=== PATIENT | male | born 1950 | race Caucasian/White ===

== ENCOUNTER 2019-09-09 10:15 | Emergency (ER) | payer MEDICARE ==
[~2019-09-09] VITALS: Ht 175.3 cm; Wt 65.8 kg
[~2019-09-09 10:15] MED LIST: CARB1TAB37 PO; CARB1TER9 PO; COM200 PO; ERGO2000 PO; TAMS0.4C96 PO
--- NOTE | 2019-09-09 10:15 | NUR ---
STANISLAW HEREDIA ALS TO ER BED 07
--- NOTE | 2019-09-09 10:15 | NUR ---
Tish brady in ED - 09/09/19 at 1016 by GABBY PT BIBA ALS TO ER BED 017
[2019-09-09 10:20] VITALS: BP 135/86
[2019-09-09] MEDS ORDERED: [UNRECOGNIZED DRUG - CODE] TP (10:31)
[2019-09-09] MEDS ORDERED: QUET25TA PO (10:31)
[2019-09-09] MEDS ORDERED: CHOL200035 PO (10:31)
[2019-09-09] MEDS ORDERED: HYD2.5O TP (10:32)
[2019-09-09] MEDS ORDERED: NACL 0.9% 1,000 ML IV ONE (10:34)
[2019-09-09] MEDS ORDERED: Duoneb IH (10:34)
--- NOTE | 2019-09-09 10:40 | NUR ---
X-Ray at bedside.
[2019-09-09 11:11] LABS: BASOPHILS # (AUTO) 0.1 K/uL (0.00-0.22); EOSINOPHILS # (AUTO) 0.1 K/uL (0-0.4); EOSINOPHILS % (AUTO) 2.4 % (0.0-4.0); HEMATOCRIT 37.3 % (36-52); HEMOGLOBIN 12.1 g/dL (12.0-18.0); LYMPHOCYTES # (AUTO) 0.7 K/uL (2.0-11.5); LYMPHOCYTES % (AUTO) 12.4 % (20.5-51.1); MEAN CORPUSCULAR HEMOGLOBIN 30 pg (27-31); MEAN CORPUSCULAR HGB CONC 32 g/dL (33-37); MEAN CORPUSCULAR VOLUME 93.9 fL (80-94); MONOCYTES # (AUTO) 0.2 K/uL (0.8-1.0); MONOCYTES % (AUTO) 4.2 % (1.7-9.3); NEUTROPHILS # (AUTO) 4.4 K/uL (1.8-7.7); PLATELET COUNT (AUTO) 234 K/uL (140-450); RED BLOOD CELL COUNT(AUTO) 3.97 MIL/uL (4.20-6.10); RED CELL DISTRIBUTION WIDTH 16.2 % (11.6-13.7); WHITE BLOOD COUNT (AUTO) 5.6 K/uL (4.8-10.8)
[2019-09-09 11:23] LABS: ANION GAP 11.5 (8-16); CARBON DIOXIDE 31.6 mmol/L (21-32); CREATININE 0.9 mg/dL (0.7-1.3); POTASSIUM 4.1 mmol/L (3.5-5.1)
[2019-09-09 11:26] LABS: PROTHROMBIN TIME 10.4 secs (10.8-13.4)
[2019-09-09 11:28] LABS: ALBUMIN 3.5 g/dL (3.4-5.0); TOTAL BILIRUBIN 1.2 mg/dL (0.0-1.0)
--- NOTE | 2019-09-09 11:30 | NUR ---
PT GOING TO CT VIA [facility] WITH [facility] EMT
--- NOTE | 2019-09-09 11:36 | NUR ---
TO CT VIA [facility]. PT WITH INTERMITTENT BOUT OF CONFUSION. BUT PT REMAINS COOPERATIVE AND PLEASANT.
[2019-09-09 13:19] VITALS: BP 118/90
--- NOTE | 2019-09-09 13:29 | NUR ---
PT RESTING IN BED, RR EVEN AND UNLABORED. VSS. DENIES ANY PAIN. PT CONFUSED AT BASELINE. ALL NEEDS MET.
--- NOTE | 2019-09-09 14:25 | NUR ---
ARRIVED FOR TRANSPORT HOME. NUMEROUS QUESTIONED ANSWERED TO . STATES SHE IS VERY UPSET PT WAS TRANSPORTED TO [facility] INSTEAD OF [facility]. ANSWERED ALL WIFES QUESTIONS IT PERTAINS TO PREHOSPITAL CARE AND TREATMENT. DEMANDING TO SPEAK TO WHOEVER SAID IT WAS OK TO HAVE HER SEEN HERE AND WHO WOULD BE PAYING THE BILL. REFERRED TO CHARGE NURSE PILAR FOR FURTHER QUESTION. PT PLACED SAFELY IN WHEEL CHAIR IS SITTING IN LOBBY AT REQUEST OF WHO INSISTS UPON SPEAKING TO AIRLINE HOSTESS.
--- NOTE | 2019-09-09 14:29 | NUR ---
Patient discharged with v/s stable. Written and verbal after care instructions given and explained. Patient verbalized understanding. Wheel Chair Assisted with by caregiver. All questions addressed prior to discharge. Advised to follow up with PMD.
--- NOTE | 2019-09-13 10:24 | NUR ---
Late entry. Confirmed with RN that 0.9 NS IV completed at 1425
== END 2019-09-09 14:29 | disposition home or self-care (01) ==
LOC: MED 10:15
DX: S00.81XA Abrasion of other part of head, initial encounter (principal); W18.30XA Fall on same level, unspecified, initial encounter; Y93.89 Activity, other specified; Y92.89 Other specified places as the place of occurrence of the external cause; Y99.8 Other external cause status; G20 Parkinson's disease; I10 Essential (primary) hypertension; G30.9 Alzheimer's disease, unspecified; Z79.899 Other long term (current) drug therapy
CPT/HCPCS: 36415; 70450; 71045; 80053; 82550; 84484; 85025; 85610; 85730; 93005; 99284; Q0092; J7030

== ENCOUNTER 2019-10-07 16:48 | Emergency (ER) | payer MEDICARE ==
[~2019-10-07] VITALS: Ht 177.8 cm; Wt 58.1 kg
[~2019-10-07 16:48] MED LIST changes: +CHOL200035 PO; +Duoneb IH; -ERGO2000 PO; +HYD2.5O TP; +QUET25TA PO; +[UNRECOGNIZED DRUG - CODE] TP
--- NOTE | 2019-10-07 16:49 | NUR ---
PT BIBA AND PLACED IN BED 7.
[2019-10-07] MEDS ORDERED: QUET25TA PO (17:02)
[2019-10-07] MEDS ORDERED: MULT-153 PO (17:02)
[2019-10-07] MEDS ORDERED: CALC-106 PO (17:02)
[2019-10-07] MEDS ORDERED: ALEN70TA1 PO (17:02)
[2019-10-07] MEDS ORDERED: COM200 PO (17:02)
--- NOTE | 2019-10-07 17:30 | NUR ---
solar installer technician at bedside.
--- NOTE | 2019-10-07 17:50 | NUR ---
GIOVANNA FROM [facility] FOR EVALUATION OF ALOC, PER STAFF PT WAS IN DINING AREA AND HAD A SYNCOPAL EPISODE AND WAS UNRESPONSIVE FOR APPROXIMATELY 2 MINUTES AND WHEN HE CAME TO PATIENT WAS ACTING ABNORMAL FROM HIS BASELINE. PT LIVES IN DEMENTIA UNIT WITH HX OF DEMENTIA. PT AWAKE ,ALERT X2 .AFEBRILE .SENSORY 5/5, MOTOR 5/5 FOR EXTREMITIES.
--- NOTE | 2019-10-07 17:50 | NUR ---
PT BRYAN TO CT SCAN.
--- NOTE | 2019-10-07 18:14 | NUR ---
PT BACK FROM [facility] IN [facility] [place] [place].
[2019-10-07 18:26] LABS: BASOPHILS % (AUTO) 0.4 % (0.0-2.0); HEMOGLOBIN 10.8 g/dL (12.0-18.0); LYMPHOCYTES # (AUTO) 0.6 K/uL (2.0-11.5); LYMPHOCYTES % (AUTO) 9.1 % (20.5-51.1); MEAN CORPUSCULAR HEMOGLOBIN 31 pg (27-31); MEAN CORPUSCULAR HGB CONC 33 g/dL (33-37); MEAN CORPUSCULAR VOLUME 95.2 fL (80-94); MONOCYTES # (AUTO) 0.6 K/uL (0.8-1.0); MONOCYTES % (AUTO) 8.4 % (1.7-9.3); NEUTROPHILS # (AUTO) 5.6 K/uL (1.8-7.7); NEUTROPHILS % (AUTO) 82.1 % (42.2-75.2); PLATELET COUNT (AUTO) 215 K/uL (140-450); RED BLOOD CELL COUNT(AUTO) 3.46 MIL/uL (4.20-6.10); RED CELL DISTRIBUTION WIDTH 15.1 % (11.6-13.7); WHITE BLOOD COUNT (AUTO) 6.8 K/uL (4.8-10.8)
[2019-10-07 18:49] LABS: ALBUMIN 3.2 g/dL (3.4-5.0); ANION GAP 11.5 (8-16); CARBON DIOXIDE 30.4 mmol/L (21-32); CREATININE 1.1 mg/dL (0.7-1.3); POTASSIUM 3.9 mmol/L (3.5-5.1); TOTAL BILIRUBIN 0.9 mg/dL (0.0-1.0)
--- NOTE | 2019-10-07 19:12 | NUR ---
GAVE REPORT TO GAETANO CANO.
[2019-10-07 19:13] LABS: APPEARANCE,URINE SL CLOUDY (CLEAR); BILIRUBIN,URINE NEGATIVE (NEGATIVE); BLOOD, URINE 1+ (NEGATIVE); COLOR,URINE YELLOW (YELLOW); LEUKOCYTE ESTERASE ,URINE NEGATIVE (NEGATIVE); NITRITE, URINE NEGATIVE (NEGATIVE); PH,URINE 5.5 (5.0-9.0); UGLUCOSE NEGATIVE (NEGATIVE)
--- NOTE | 2019-10-07 19:13 | NUR ---
BEDSIDE REPORT RECEIVED FROM GAETANO HORNER. ASSUMED CARE AT THIS TIME.
--- NOTE | 2019-10-07 19:59 | NUR ---
PT LAYING SUPINE IN BED. PT AAOX3 TO PERSON, PLACE, LOCATION. ANSWERS SOME QUESTIONS APPROPIATELY. PT GAZES OFF AND DOES NOT MAKE EYE CONTACT. FAMILY AT BEDSIDE. BEDRAILS X2 UP. WILL CONTINUE TO MONITOR.
[2019-10-07] MEDS ORDERED: LEVOFLOXACIN 500 MG/D5W PREMIX 100 ML IV ONE (20:30)
--- NOTE | 2019-10-07 20:50 | NUR ---
PT LAYING SUPINE IN BED. RR EVEN AND UNLABORED. O2 SAT AT 98% RA. FAMILY AT BEDSIDE. BEDRAILS X2 UP. WILL CONTINUE TO MONITOR.
--- NOTE | 2019-10-07 20:55 | NUR ---
DR. BEDOLLA AT BEDSIDE EVALUTING PT.
[2019-10-07] MEDS ORDERED: NACL 0.9% 1,000 ML IV ONE (21:30)
[2019-10-07 23:00] VITALS: BP 145/92
--- NOTE | 2019-10-07 23:00 | NUR ---
ASSITING PRIMARY NURSE WITH DC. PT APPEARS TO BE IN NO DISTRESS. PT GIVEN DC PAPERWORK. Patient discharged with v/s stable. Written and verbal after care instructions given and explained. Patient alert, oriented and verbalized understanding of instructions. Ambulatory with steady gait. All questions addressed prior to discharge. ID band removed. Patient advised to follow up with PMD. Rx of LEVAQUIN given. Patient educated on indication of medication including possible reaction and side effects. Opportunity to ask questions provided and answered.
--- NOTE | 2019-10-08 11:18 | NUR ---
Late entry. Confirmed with RN that 0.9 NS IV completed at 2240
== END 2019-10-07 23:00 | disposition home or self-care (01) ==
LOC: MED 16:48
DX: R41.82 Altered mental status, unspecified (principal); N39.0 Urinary tract infection, site not specified; R55 Syncope and collapse; F03.90 Unspecified dementia, unspecified severity, without behavioral disturbance, psychotic disturbance, mood disturbance, and anxiety; Z79.899 Other long term (current) drug therapy
CPT/HCPCS: 36415; 70450; 71045; 80053; 81001; 83605; 83880; 84484; 85025; 87040; 87086; 93005; 96361; 96365; 99284; J1956; J7030; Q0092